=== PATIENT | male | born 1960 | race Caucasian/White ===

== ENCOUNTER 2020-09-24 13:15 | Emergency (ER) | payer SELFPAY ==
[~2020-09-24 13:15] MED LIST: LORazepam 2 MG/ML SDV ONE
[2020-09-24] MEDS ORDERED: levETIRAcetam 500 MG in Sodium Chloride 0.9% 100 ML IV ONE ×3 (13:43→16:18)
[2020-09-24] MEDS ORDERED: Sodium Chloride 0.9% 1,000 ML IV SCH (13:45)
[2020-09-24] MEDS ORDERED: Diltiazem 100 MG in Sodium Chloride 0.9% 100 ML IV SCH (13:45)
--- NOTE | 2020-09-24 13:48 | EDM.PDOC ---
ED HPI GENERAL MEDICAL PROBLEM - General Chief Complaint: Trauma Stated Complaint: [facility] Time Seen by Provider: 09/24/20 13:19 Source of Information: Reports: Patient History Limitations: Reports: No Limitations - History of Present Illness INITIAL COMMENTS - FREE TEXT/NARRATIVE: 59-year-old male presents to the ED although I question his age., Code was called upon arrival at 13:14 hrs. he appears normal than stated age. The history is that passersby found a male who apparently fell getting out of his vehicle or suffered a syncopal episode. It is unclear if his actual fall was witnessed versus finding him on the ground. Is unclear if they found him unresponsive. Paramedics were called. Patient moans and groans and he could say a few words to them indicating that his left leg hurt. They could not get in a modicum or if he is on any medications. Patient experienced a grand mal convulsion lasting a little over a minute while in the ambulance in route to the hospital. He has immobilized with a c-collar and on a spine board upon arrival. He can offer no verbal response. 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 The left eye shows a pupil dilated to 6 mm but does respond to light. He has an abrasion above his left eye in a curvilinear fashion but appears to be fairly superficial. No other palpable skull deficits or defects identified. C-collar was left in place. He had good air entry to both lung silverio no palpable deformities or subcutaneous emphysema clavicles intact shoulders intact elbows intact wrists and forearms intact. Abdomen showed a few bowel sounds and soft palpation without any organomegaly or masses. Chest revealed a rapid heart rate in the 170s appeared to be a regular rhythm. Monitor shows SVT like rhythm between 170 and 180 bpm. This was recognized by the paramedics in route to the hospital as well they were about to give him Identicard when he seemed to slow down. He did receive Adenocard 6, 12, 12 in the ED without any slowing of his rate. School he was given Cardizem 10 mg IV bolus and started on drip at 10 mg/h. Subsequently he has required 2 further 10 mg IV boluses to achieve a heart rate in the 140s. Onset: Today, Sudden, Unknown/Unsure (Early his fall was unwitnessed but it is felt that he was found shortly after injury outside of a local apartment building.) Onset Date: 09/24/20 Duration: Other (Unknown for sure.) Location: Reports: Head (Appears to have hit his head but there is no major deformities or hematomas other than above his left eye) Quality: Reports: Other (Patient is nonverbal unable to quantify.) Severity: Severe Improves with: Reports: None Worsens with: Reports: None Context: Reports: Trauma (To be versus fall while getting out of a vehicle. Appears to of landed hard on a concrete surface with suspect closed head injury.). Denies: Activity, Exercise, Lifting, Sick Contact, Other Associated Symptoms: Reports: Seizure, Other (Grand mal seizure lasting a little over a minute in route to the hospital per paramedics. Identified to have a regular narrow complex tachycardia at 170 to 180/min on the school lunch monitor in the ambulance. 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 [Unable to Verify Home Med List] 09/24/20 [History] Review of Systems - Review of Systems Review Of Systems: Unable To Obtain Reason Not Obtained: Patient arrives essentially unresponsive. Patient arrives after ED EXAM, GENERAL - Physical Exam Exam: See Below Exam Limited By: Altered Mental Status (I could smell no alcohol on his breath.) General Appearance: Obtunded (Perhaps postictal.), Moderate Distress, Other (Monitor shows narrow complex tachycardia of 170 to 180/min. Appears to be SVT. No response to Adenocard- 6,12 and 12 mg IV. ) Ears: Normal TMs, Other (No blood behind the tympanic membranes.) Throat/Mouth: Normal Inspection, Normal Lips, Normal Oropharynx, Other (Tongue appears mildly dry. There is no evidence of tongue bite or any blood in the oropharynx.). No: Normal Teeth Head: Other (He has a curvilinear superficial laceration above his left eyebrow. There is slight swelling in this area. No palpable deformities on the posterior scalp.) Neck: Other (Neck could not be examined as he arrives in a c-collar and will be left on until neck is cleared by CT exam. Trachea is midline.) Respiratory/Chest: No Respiratory Distress, Lungs Clear, Normal Breath Sounds, No Accessory Muscle Use, Other (Palpable deformities or subcutaneous emphysema identified on chest wall exam.) Cardiovascular: No Edema, No Murmur, No Rub, Tachycardia (Monitor reveals a regular tachycardia between 170 and 180/min compatible with SVT.). No: Normal Peripheral Pulses Peripheral Pulses: 2+: Posterior Tibial (L), Posterior Tibial (R), Dorsalis Pedis (L), Dorsalis Pedis (R), 3+: Carotid (L), Carotid (R) GI/Abdominal: Normal Bowel Sounds, Soft, Non-Tender, No Organomegaly, No Mass, Pelvis Stable, Other (Scaphoid abdomen benign normal aorta without bruit.). No: Guarding, Rigid ( No surgical scars), Rebound, Tender (Male) Exam: No Hernia, Other Rectal (Males) Exam: Normal Exam (No blood at the urethral meatus or at the anus.). No: Normal Rectal Tone (Paralyzed at the time of rectal exam.) Back Exam: Normal Inspection, Full Range of Motion, Other (Logrolling there is no evidence of abrasions contusions or injuries to the thoracic or lumbar spine.) Extremities: Normal Inspection, Normal Range of Motion, Non-Tender, No Pedal Edema ( Spinous processes appear to be intact.), Other (He had full range of motion of both knees both hips and ankles.) Neurological: Confused (Suspect postictal.), Unresponsive (He moans and groans but offers no verbal response that is understandable.) Skin Exam: Warm, Dry, Intact, Normal Color, No Rash #1 Interpretation EKG Date: 09/24/20 Time: 14:33 Rhythm: Other Rate (Beats/Min): 151 [place]: LAD-Left [place] Deviation (-73 degrees) P-Wave: Present (I suspect that the P wave may be on top of the T wave but this is not easily discernible at this rate.) QRS: Other (There is a Q wave in lead III and aVF 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 There is decreased voltage in the limb leads.) ST-T: Other (Diffuse early repolarization pattern with questionable ST segment depression in leads V4 to V6 suggesting ischemia. Initial poor R wave progression consider old anteroseptal myocardial infarction) QT: Prolonged (QT interval is markedly prolonged at) EKG Interpretation Comments: Abnormal ECG #2 Interpretation EKG Date: 09/24/20 Time: 15:59 Rhythm: Other Rate (Beats/Min): 128 [place]: LAD-Left [place] Deviation (Left axis deviation -73 degrees) P-Wave: Enlarged (Consider left atrial hypertrophy) QRS: Other (Q waves present leads III and aVF consider old inferior wall myocardial infarction. Initial poor R wave progression V1 -V3 consider old anteroseptal myocardial infarction.) ST-T: Other (Diffuse early repolarization pattern versus ST segment depression in leads V4 to V6.) QT: Prolonged EKG Interpretation Comments: Abnormal ECG Course - Vital Signs Last Recorded V/S: Last Vital Signs Temp -9.9 C L 09/24/20 14:22 Pulse 170 H 09/24/20 14:19 Resp 30 H 09/24/20 14:19 BP 110/79 09/24/20 14:19 Pulse Ox 91 L 09/24/20 17:29 - Orders/Labs/Meds Orders: Active Orders 24 hr Category Date Time Status Insert Beasley Catheter [Insert Urinary Catheter] [OM.PC] Care 09/24/20 14:00 Ordered Q24H CULTURE BLOOD [BC] Stat Lab 09/24/20 14:10 Received CULTURE BLOOD [BC] Stat Lab 09/24/20 14:19 Received CULTURE CSF + SMEAR [RM] Urgent Lab 09/24/20 15:11 Results ME PANEL Urgent Lab 09/24/20 15:11 Received Blood Culture x2 Reflex Set [OM.PC] Stat Oth 09/24/20 13:47 Ordered Labs: Laboratory Tests 09/24/20 09/24/20 09/24/20 Range/Units 13:24 13:24 13:24 WBC 6.96 (4.23-9.07) K/mm3 RBC 5.37 (4.63-6.08) M/mm3 Hgb 17.4 (13.7-17.5) gm/dl Hct 54.3 H (40.1-51.0) % MCV 101.1 H (79.0-92.2) fl MCH 32.4 H (25.7-32.2) pg MCHC 32.0 L (32.2-35.5) g/dl RDW Std Deviation 52.0 H (35.1-43.9) fL Plt Count 90 L (163-337) K/mm3 MPV 10.0 (9.4-12.3) fl Neut % (Auto) 57.9 (34.0-67.9) % Lymph % (Auto) 25.6 (21.8-53.1) % [place] % (Auto) 15.7 H (5.3-12.2) % Eos % (Auto) 0.1 L (0.8-7.0) Baso % (Auto) 0.3 (0.1-1.2) % Neut # (Auto) 4.03 (1.78-5.38) K/mm3 Lymph # (Auto) 1.78 (1.32-3.57) K/mm3 [place] # (Auto) 1.09 H (0.30-0.82) K/mm3 Eos # (Auto) 0.01 L (0.04-0.54) K/mm3 Baso # (Auto) 0.02 (0.01-0.08) K/mm3 Manual Slide Review Abnormal smear PT 11.3 (9.7-12.0) SECONDS INR 1.06 APTT 30.5 (21.7-31.4) SECONDS Puncture Site ABG pH (7.35-7.45) ABG pCO2 (35.0-45.0) mmHg ABG pO2 (80.0-100.0) mmHg ABG HCO3 (22.0-26.0) meq/L ABG O2 Saturation (96.0-97.0) % ABG Base Excess (-2-2.0) A-a Gradient mmHg O2 Delivery Device FiO2 (21.00-100.00) % Tidal Volume cc PEEP cmH20 Sodium 140 (136-145) mEq/L Potassium 4.1 (3.5-5.1) mEq/L Chloride 93 L (98-107) mEq/L Carbon Dioxide 10 L (21-32) mEq/L Anion Gap 41.1 H (5-15) BUN 30 H (7-18) mg/dL Creatinine 2.1 H (0.7-1.3) mg/dL Est Cr Clr Drug Dosing TNP Estimated GFR (MDRD) 33 (>60) mL/min BUN/Creatinine Ratio 14.3 (14-18) Glucose 226 H (74-106) mg/dL POC Glucose (70-99) mg/dL Lactic Acid (0.4-2.0) mmol/L Calcium 10.4 H (8.5-10.1) mg/dL Magnesium 2.5 H (1.8-2.4) mg/dl Total Bilirubin 1.7 H (0.2-1.0) mg/dL AST 361 H (15-37) U/L ALT 350 H (16-63) U/L Alkaline Phosphatase 90 (46-116) U/L CK-MB (CK-2) 1.0 (0-3.6) ng/ml Troponin I < 0.017 (0.00-0.056) ng/mL C-Reactive Protein (<1.0) mg/dL NT-Pro-B Natriuret Pep (0-125) pg/mL Total Protein 9.4 H (6.4-8.2) g/dl Albumin 5.0 (3.4-5.0) g/dl Globulin 4.4 gm/dL Albumin/Globulin Ratio 1.1 (1-2) Urine Color (Yellow) Urine Appearance (Clear) Urine pH (5.0-8.0) Ur Specific [place] (1.005-1.030) Urine Protein (Negative) Urine Glucose (UA) (Negative) Urine Ketones (Negative) Urine Occult Blood (Negative) Urine Nitrite (Negative) Urine Bilirubin (Negative) Urine Urobilinogen (0.2-1.0) Ur Leukocyte Esterase (Negative) Urine RBC (0-5) /hpf Urine WBC (0-5) /hpf Ur Epithelial Cells (0-5) /hpf Amorphous Sediment (NOT SEEN) /hpf Urine Bacteria (FEW) /hpf Urine Mucus (FEW) /hpf CSF Tube Number CSF Volume ml CSF Appearance (CLEAR) CSF Color CSF Supernatant Appear CSF WBC (0.000-0.008) 10*3/uL CSF RBC (0.000-0.003) 10*6/uL CSF Seg Neutrophils (0-5) CSF Lymphocytes (0-8) CSF Monocytes (0-0) CSF Diff Comment CSF Glucose (40-70) mg/dl CSF Total Protein (15-45) mg/dl Urine Opiates Screen (VITMMM=593) Ur Buprenorphine Scrn (CUTOFF=10) Ur Oxycodone Screen (EPT4BX=203) Urine Methadone Screen (UJY6ZT=644) Ur Propoxyphene Screen (TKMYZQ=958) Ur Barbiturates Screen (RPMWRW=290) Ur Tricyclics Screen (JAKIYB=416) Ur Phencyclidine Scrn (CUTOFF=25) Ur Amphetamine Screen (UQZVPI=314) U Methamphetamines Scrn (RVOPGN=945) U Benzodiazepines Scrn (WHMVWW=655) U Cocaine Metab Screen (UIVKRE=113) U Marijuana (THC) Screen (CUTOFF=50) Ethyl Alcohol 0.00 (0.00) gm% SARS-CoV-2 RNA (KASSIDY) (NEGATIVE) 09/24/20 09/24/20 09/24/20 Range/Units 13:24 13:24 13:43 WBC (4.23-9.07) K/mm3 RBC (4.63-6.08) M/mm3 Hgb (13.7-17.5) gm/dl Hct (40.1-51.0) % MCV (79.0-92.2) fl MCH (25.7-32.2) pg MCHC (32.2-35.5) g/dl RDW Std Deviation (35.1-43.9) fL Plt Count (163-337) K/mm3 MPV (9.4-12.3) fl Neut % (Auto) (34.0-67.9) % Lymph % (Auto) (21.8-53.1) % [place] % (Auto) (5.3-12.2) % Eos % (Auto) (0.8-7.0) Baso % (Auto) (0.1-1.2) % Neut # (Auto) (1.78-5.38) K/mm3 Lymph # (Auto) (1.32-3.57) K/mm3 [place] # (Auto) (0.30-0.82) K/mm3 Eos # (Auto) (0.04-0.54) K/mm3 Baso # (Auto) (0.01-0.08) K/mm3 Manual Slide Review PT (9.7-12.0) SECONDS INR APTT (21.7-31.4) SECONDS Puncture Site ABG pH (7.35-7.45) ABG pCO2 (35.0-45.0) mmHg ABG pO2 (80.0-100.0) mmHg ABG HCO3 (22.0-26.0) meq/L ABG O2 Saturation (96.0-97.0) % ABG Base Excess (-2-2.0) A-a Gradient mmHg O2 Delivery Device FiO2 (21.00-100.00) % Tidal Volume cc PEEP cmH20 Sodium (136-145) mEq/L Potassium (3.5-5.1) mEq/L Chloride (98-107) mEq/L Carbon Dioxide (21-32) mEq/L Anion Gap (5-15) BUN (7-18) mg/dL Creatinine (0.7-1.3) mg/dL Est Cr Clr Drug Dosing Estimated GFR (MDRD) (>60) mL/min BUN/Creatinine Ratio (14-18) Glucose (74-106) mg/dL POC Glucose (70-99) mg/dL Lactic Acid (0.4-2.0) mmol/L Calcium (8.5-10.1) mg/dL Magnesium (1.8-2.4) mg/dl Total Bilirubin (0.2-1.0) mg/dL AST (15-37) U/L ALT (16-63) U/L Alkaline Phosphatase (46-116) U/L CK-MB (CK-2) (0-3.6) ng/ml Troponin I (0.00-0.056) ng/mL C-Reactive Protein 0.6 (<1.0) mg/dL NT-Pro-B Natriuret Pep 1338 H (0-125) pg/mL Total Protein (6.4-8.2) g/dl Albumin (3.4-5.0) g/dl Globulin gm/dL Albumin/Globulin Ratio (1-2) Urine Color [place] H (Yellow) Urine Appearance Cloudy H (Clear) Urine pH 6.5 (5.0-8.0) Ur Specific [place] > or = 1.030 (1.005-1.030) Urine Protein 3+ H (Negative) Urine Glucose (UA) Trace H (Negative) Urine Ketones 4+ H (Negative) Urine Occult Blood 3+ H (Negative) Urine Nitrite Negative (Negative) Urine Bilirubin 2+ H (Negative) Urine Urobilinogen 1.0 (0.2-1.0) Ur Leukocyte Esterase Negative (Negative) Urine RBC 0-5 (0-5) /hpf Urine WBC 0-5 (0-5) /hpf Ur Epithelial Cells 0-5 (0-5) /hpf Amorphous Sediment Moderate H (NOT SEEN) /hpf Urine Bacteria Few (FEW) /hpf Urine Mucus Moderate H (FEW) /hpf CSF Tube Number CSF Volume ml CSF Appearance (CLEAR) CSF Color CSF Supernatant Appear CSF WBC (0.000-0.008) 10*3/uL CSF RBC (0.000-0.003) 10*6/uL CSF Seg Neutrophils (0-5) CSF Lymphocytes (0-8) CSF Monocytes (0-0) CSF Diff Comment CSF Glucose (40-70) mg/dl CSF Total Protein (15-45) mg/dl Urine Opiates Screen (IIPRFF=329) Ur Buprenorphine Scrn (CUTOFF=10) Ur Oxycodone Screen (NZF8XO=335) Urine Methadone Screen (ZFM7EH=069) Ur Propoxyphene Screen (ZHMNAU=906) Ur Barbiturates Screen (HVYOSX=051) Ur Tricyclics Screen (VFIGDU=618) Ur Phencyclidine Scrn (CUTOFF=25) Ur Amphetamine Screen (KPSLXF=735) U Methamphetamines Scrn (XZSQXD=564) U Benzodiazepines Scrn (BOPGMQ=942) U Cocaine Metab Screen (HCWBAP=415) U Marijuana (THC) Screen (CUTOFF=50) Ethyl Alcohol (0.00) gm% SARS-CoV-2 RNA (KASSIDY) (NEGATIVE) 09/24/20 09/24/20 09/24/20 Range/Units 13:43 13:46 14:06 WBC (4.23-9.07) K/mm3 RBC (4.63-6.08) M/mm3 Hgb (13.7-17.5) gm/dl Hct (40.1-51.0) % MCV (79.0-92.2) fl MCH (25.7-32.2) pg MCHC (32.2-35.5) g/dl RDW Std Deviation (35.1-43.9) fL Plt Count (163-337) K/mm3 MPV (9.4-12.3) fl Neut % (Auto) (34.0-67.9) % Lymph % (Auto) (21.8-53.1) % [place] % (Auto) (5.3-12.2) % Eos % (Auto) (0.8-7.0) Baso % (Auto) (0.1-1.2) % Neut # (Auto) (1.78-5.38) K/mm3 Lymph # (Auto) (1.32-3.57) K/mm3 [place] # (Auto) (0.30-0.82) K/mm3 Eos # (Auto) (0.04-0.54) K/mm3 Baso # (Auto) (0.01-0.08) K/mm3 Manual Slide Review PT (9.7-12.0) SECONDS INR APTT (21.7-31.4) SECONDS Puncture Site ABG pH (7.35-7.45) ABG pCO2 (35.0-45.0) mmHg ABG pO2 (80.0-100.0) mmHg ABG HCO3 (22.0-26.0) meq/L ABG O2 Saturation (96.0-97.0) % ABG Base Excess (-2-2.0) A-a Gradient mmHg O2 Delivery Device FiO2 (21.00-100.00) % Tidal Volume cc PEEP cmH20 Sodium (136-145) mEq/L Potassium (3.5-5.1) mEq/L Chloride (98-107) mEq/L Carbon Dioxide (21-32) mEq/L Anion Gap (5-15) BUN (7-18) mg/dL Creatinine (0.7-1.3) mg/dL Est Cr Clr Drug Dosing Estimated GFR (MDRD) (>60) mL/min BUN/Creatinine Ratio (14-18) Glucose (74-106) mg/dL POC Glucose (70-99) mg/dL Lactic Acid 16.2 H* (0.4-2.0) mmol/L Calcium (8.5-10.1) mg/dL Magnesium (1.8-2.4) mg/dl Total Bilirubin (0.2-1.0) mg/dL AST (15-37) U/L ALT (16-63) U/L Alkaline Phosphatase (46-116) U/L CK-MB (CK-2) (0-3.6) ng/ml Troponin I (0.00-0.056) ng/mL C-Reactive Protein (<1.0) mg/dL NT-Pro-B Natriuret Pep (0-125) pg/mL Total Protein (6.4-8.2) g/dl Albumin (3.4-5.0) g/dl Globulin gm/dL Albumin/Globulin Ratio (1-2) Urine Color (Yellow) Urine Appearance (Clear) Urine pH (5.0-8.0) Ur Specific [place] (1.005-1.030) Urine Protein (Negative) Urine Glucose (UA) (Negative) Urine Ketones (Negative) Urine Occult Blood (Negative) Urine Nitrite (Negative) Urine Bilirubin (Negative) Urine Urobilinogen (0.2-1.0) Ur Leukocyte Esterase (Negative) Urine RBC (0-5) /hpf Urine WBC (0-5) /hpf Ur Epithelial Cells (0-5) /hpf Amorphous Sediment (NOT SEEN) /hpf Urine Bacteria (FEW) /hpf Urine Mucus (FEW) /hpf CSF Tube Number CSF Volume ml CSF Appearance (CLEAR) CSF Color CSF Supernatant Appear CSF WBC (0.000-0.008) 10*3/uL CSF RBC (0.000-0.003) 10*6/uL CSF Seg Neutrophils (0-5) CSF Lymphocytes (0-8) CSF Monocytes (0-0) CSF Diff Comment CSF Glucose (40-70) mg/dl CSF Total Protein (15-45) mg/dl Urine Opiates Screen Negative (IJJUIO=130) Ur Buprenorphine Scrn Negative (CUTOFF=10) Ur Oxycodone Screen Negative (EUV5FA=324) Urine Methadone Screen Negative (TQO1RJ=001) Ur Propoxyphene Screen Negative (WVYUHT=238) Ur Barbiturates Screen Negative (XQUGHJ=071) Ur Tricyclics Screen Negative (INLRLG=686) Ur Phencyclidine Scrn Negative (CUTOFF=25) Ur Amphetamine Screen Negative (AJHCOH=614) U Methamphetamines Scrn Negative (LLXPIY=055) U Benzodiazepines Scrn Negative (VYTTLS=158) U Cocaine Metab Screen Negative (LGWEPZ=001) U Marijuana (THC) Screen Negative (CUTOFF=50) Ethyl Alcohol (0.00) gm% SARS-CoV-2 RNA (KASSIDY) Negative (NEGATIVE) 09/24/20 09/24/2021 Range/Units 14:10 15:11 15:11 WBC (4.23-9.07) K/mm3 RBC (4.63-6.08) M/mm3 Hgb (13.7-17.5) gm/dl Hct (40.1-51.0) % MCV (79.0-92.2) fl MCH (25.7-32.2) pg MCHC (32.2-35.5) g/dl RDW Std Deviation (35.1-43.9) fL Plt Count (163-337) K/mm3 MPV (9.4-12.3) fl Neut % (Auto) (34.0-67.9) % Lymph % (Auto) (21.8-53.1) % [place] % (Auto) (5.3-12.2) % Eos % (Auto) (0.8-7.0) Baso % (Auto) (0.1-1.2) % Neut # (Auto) (1.78-5.38) K/mm3 Lymph # (Auto) (1.32-3.57) K/mm3 [place] # (Auto) (0.30-0.82) K/mm3 Eos # (Auto) (0.04-0.54) K/mm3 Baso # (Auto) (0.01-0.08) K/mm3 Manual Slide Review PT (9.7-12.0) SECONDS INR APTT (21.7-31.4) SECONDS Puncture Site Lt radial ABG pH 7.26 L (7.35-7.45) ABG pCO2 44.4 (35.0-45.0) mmHg ABG pO2 171.0 H* (80.0-100.0) mmHg ABG HCO3 19.3 L (22.0-26.0) meq/L ABG O2 Saturation 98.8 H (96.0-97.0) % ABG Base Excess -7.5 L (-2-2.0) A-a Gradient 202 mmHg O2 Delivery Device Ventilator FiO2 60.00 (21.00-100.00) % Tidal Volume 450.0 cc PEEP 5.0 cmH20 Sodium (136-145) mEq/L Potassium (3.5-5.1) mEq/L Chloride (98-107) mEq/L Carbon Dioxide (21-32) mEq/L Anion Gap (5-15) BUN (7-18) mg/dL Creatinine (0.7-1.3) mg/dL Est Cr Clr Drug Dosing Estimated GFR (MDRD) (>60) mL/min BUN/Creatinine Ratio (14-18) Glucose (74-106) mg/dL POC Glucose (70-99) mg/dL Lactic Acid (0.4-2.0) mmol/L Calcium (8.5-10.1) mg/dL Magnesium (1.8-2.4) mg/dl Total Bilirubin (0.2-1.0) mg/dL AST (15-37) U/L ALT (16-63) U/L Alkaline Phosphatase (46-116) U/L CK-MB (CK-2) (0-3.6) ng/ml Troponin I (0.00-0.056) ng/mL C-Reactive Protein (<1.0) mg/dL NT-Pro-B Natriuret Pep (0-125) pg/mL Total Protein (6.4-8.2) g/dl Albumin (3.4-5.0) g/dl Globulin gm/dL Albumin/Globulin Ratio (1-2) Urine Color (Yellow) Urine Appearance (Clear) Urine pH (5.0-8.0) Ur Specific [place] (1.005-1.030) Urine Protein (Negative) Urine Glucose (UA) (Negative) Urine Ketones (Negative) Urine Occult Blood (Negative) Urine Nitrite (Negative) Urine Bilirubin (Negative) Urine Urobilinogen (0.2-1.0) Ur Leukocyte Esterase (Negative) Urine RBC (0-5) /hpf Urine WBC (0-5) /hpf Ur Epithelial Cells (0-5) /hpf Amorphous Sediment (NOT SEEN) /hpf Urine Bacteria (FEW) /hpf Urine Mucus (FEW) /hpf CSF Tube Number 3 CSF Volume 4 ml CSF Appearance Hazy (CLEAR) CSF Color [place] CSF Supernatant Appear No xanthochromia CSF WBC 0.004 (0.000-0.008) 10*3/uL CSF RBC 0.003 (0.000-0.003) 10*6/uL CSF Seg Neutrophils 24.0 H (0-5) CSF Lymphocytes 2.0 (0-8) CSF Monocytes 4.0 H (0-0) CSF Diff Comment CSF Glucose 100.0 H (40-70) mg/dl CSF Total Protein 76.9 H (15-45) mg/dl Urine Opiates Screen (NQUTNZ=793) Ur Buprenorphine Scrn (CUTOFF=10) Ur Oxycodone Screen (QQA7QS=184) Urine Methadone Screen (TGN9JR=836) Ur Propoxyphene Screen (DVOCCO=534) Ur Barbiturates Screen (AMCGUQ=944) Ur Tricyclics Screen (ADNVHY=184) Ur Phencyclidine Scrn (CUTOFF=25) Ur Amphetamine Screen (YSTCOV=443) U Methamphetamines Scrn (DQEXIT=617) U Benzodiazepines Scrn (GVGBVC=864) U Cocaine Metab Screen (NOZXLS=763) U Marijuana (THC) Screen (CUTOFF=50) Ethyl Alcohol (0.00) gm% SARS-CoV-2 RNA (KASSIDY) (NEGATIVE) 09/24/20 09/24/20 09/24/20 Range/Units 15:14 17:00 18:58 WBC (4.23-9.07) K/mm3 RBC (4.63-6.08) M/mm3 Hgb (13.7-17.5) gm/dl Hct (40.1-51.0) % MCV (79.0-92.2) fl MCH (25.7-32.2) pg MCHC (32.2-35.5) g/dl RDW Std Deviation (35.1-43.9) fL Plt Count (163-337) K/mm3 MPV (9.4-12.3) fl Neut % (Auto) (34.0-67.9) % Lymph % (Auto) (21.8-53.1) % [place] % (Auto) (5.3-12.2) % Eos % (Auto) (0.8-7.0) Baso % (Auto) (0.1-1.2) % Neut # (Auto) (1.78-5.38) K/mm3 Lymph # (Auto) (1.32-3.57) K/mm3 [place] # (Auto) (0.30-0.82) K/mm3 Eos # (Auto) (0.04-0.54) K/mm3 Baso # (Auto) (0.01-0.08) K/mm3 Manual Slide Review PT (9.7-12.0) SECONDS INR APTT (21.7-31.4) SECONDS Puncture Site Lt radial ABG pH 7.35 (7.35-7.45) ABG pCO2 44.7 (35.0-45.0) mmHg ABG pO2 101.0 H (80.0-100.0) mmHg ABG HCO3 24.0 (22.0-26.0) meq/L ABG O2 Saturation 96.7 (96.0-97.0) % ABG Base Excess -1.4 (-2-2.0) A-a Gradient 129 mmHg O2 Delivery Device Ventilator FiO2 40.00 (21.00-100.00) % Tidal Volume 450.0 cc PEEP 5.0 cmH20 Sodium (136-145) mEq/L Potassium (3.5-5.1) mEq/L Chloride (98-107) mEq/L Carbon Dioxide (21-32) mEq/L Anion Gap (5-15) BUN (7-18) mg/dL Creatinine (0.7-1.3) mg/dL Est Cr Clr Drug Dosing Estimated GFR (MDRD) (>60) mL/min BUN/Creatinine Ratio (14-18) Glucose (74-106) mg/dL POC Glucose 124 H (70-99) mg/dL Lactic Acid 2.3 H* (0.4-2.0) mmol/L Calcium (8.5-10.1) mg/dL Magnesium (1.8-2.4) mg/dl Total Bilirubin (0.2-1.0) mg/dL AST (15-37) U/L ALT (16-63) U/L Alkaline Phosphatase (46-116) U/L CK-MB (CK-2) (0-3.6) ng/ml Troponin I (0.00-0.056) ng/mL C-Reactive Protein (<1.0) mg/dL NT-Pro-B Natriuret Pep (0-125) pg/mL Total Protein (6.4-8.2) g/dl Albumin (3.4-5.0) g/dl Globulin gm/dL Albumin/Globulin Ratio (1-2) Urine Color (Yellow) Urine Appearance (Clear) Urine pH (5.0-8.0) Ur Specific [place] (1.005-1.030) Urine Protein (Negative) Urine Glucose (UA) (Negative) Urine Ketones (Negative) Urine Occult Blood (Negative) Urine Nitrite (Negative) Urine Bilirubin (Negative) Urine Urobilinogen (0.2-1.0) Ur Leukocyte Esterase (Negative) Urine RBC (0-5) /hpf Urine WBC (0-5) /hpf Ur Epithelial Cells (0-5) /hpf Amorphous Sediment (NOT SEEN) /hpf Urine Bacteria (FEW) /hpf Urine Mucus (FEW) /hpf CSF Tube Number CSF Volume ml CSF Appearance (CLEAR) CSF Color CSF Supernatant Appear CSF WBC (0.000-0.008) 10*3/uL CSF RBC (0.000-0.003) 10*6/uL CSF Seg Neutrophils (0-5) CSF Lymphocytes (0-8) CSF Monocytes (0-0) CSF Diff Comment CSF Glucose (40-70) mg/dl CSF Total Protein (15-45) mg/dl Urine Opiates Screen (QNUWBY=622) Ur Buprenorphine Scrn (CUTOFF=10) Ur Oxycodone Screen (RPJ0GI=773) Urine Methadone Screen (SIX7ON=201) Ur Propoxyphene Screen (UJVWIG=318) Ur Barbiturates Screen (UNGHOH=610) Ur Tricyclics Screen (RCIEUV=893) Ur Phencyclidine Scrn (CUTOFF=25) Ur Amphetamine Screen (OCQWTU=599) U Methamphetamines Scrn (AIUGQG=750) U Benzodiazepines Scrn (BABEMD=175) U Cocaine Metab Screen (FMPLUX=470) U Marijuana (THC) Screen (CUTOFF=50) Ethyl Alcohol (0.00) gm% SARS-CoV-2 RNA (KASSIDY) (NEGATIVE) Meds: Medications Discontinued Medications Generic Name Dose Route Start Last Admin Trade Name Freq PRN Reason Stop Dose Admin Acetaminophen 650 mg 09/24/20 13:52 09/24/20 14:22 Acetaminophen 650 Mg Supp RECTAL 09/24/20 13:53 650 mg NOW ONE Administration Albuterol 2.5 mg 09/24/20 17:28 09/24/20 17:34 Albuterol 0.083% 2.5 Mg/3 Ml Neb Soln NEB 09/24/20 17:29 2.5 mg ONETIME ONE Administration Ceftriaxone Sodium Confirm 09/24/20 15:01 09/24/20 16:24 Ceftriaxone 2 Gm Advvial Administered 09/24/20 15:02 Not Given Dose 2 gm IV .STK-MED ONE Sodium Chloride 1,000 mls @ 125 mls/hr 09/24/20 13:45 09/24/20 13:40 Normal Saline IV 999 mls/hr ASDIRECTED ARVIN Administration Levetiracetam 500 mg/ Sodium 105 mls @ 400 mls/hr 09/24/20 13:43 09/24/20 14:00 Chloride IV 09/24/20 13:57 400 mls/hr ONETIME ONE Administration Amiodarone HCl/Dextrose Confirm 09/24/20 14:27 09/24/20 16:47 Nexterone In Dextrose 150 Mg/100 Ml Administered 09/24/20 14:28 Not Given Dose 100 mls @ as directed IV .STK-MED ONE Amiodarone HCl/Dextrose Confirm 09/24/20 14:27 09/24/20 17:01 Nexterone In Dextrose 360 Mg/200 Ml Administered 09/24/20 14:28 Not Given Dose 360 mg in 200 mls @ as directed .ROUTE .STK-MED ONE Sodium Chloride Confirm 09/24/20 15:01 09/24/20 16:24 Normal Saline Administered 09/24/20 15:02 Not Given Dose 100 mls @ as directed .ROUTE .STK-MED ONE Ceftriaxone Sodium 2 gm/ 100 mls @ 200 mls/hr 09/24/20 15:15 09/24/20 15:12 Sodium Chloride IV 200 mls/hr Q24H ARVIN Administration Levetiracetam 500 mg/ Sodium 105 mls @ 400 mls/hr 09/24/20 14:17 09/24/20 14:17 Chloride IV 09/24/20 14:32 400 mls/hr ONETIME ONE Administration Levetiracetam 500 mg/ Sodium 105 mls @ 400 mls/hr 09/24/20 16:18 09/24/20 16:40 Chloride IV 09/24/20 16:32 400 mls/hr ONETIME ONE Administration Midazolam HCl 100 mg/ Sodium 100 mls @ 20 mls/hr 09/24/20 16:30 09/24/20 16:36 Chloride IV 20 mg/hr TITRATE ARVIN 20 mls/hr Administration Protocol 20 MG/HR Sodium Chloride Confirm 09/24/20 16:29 09/24/20 17:07 Normal Saline Administered 09/24/20 16:30 Not Given Dose 1,000 mls @ as directed .ROUTE .STK-MED ONE Amiodarone HCl/Dextrose 100 mls @ 600 mls/hr 09/24/20 14:30 09/24/20 14:31 Nexterone In Dextrose 150 Mg/100 Ml IV 09/24/20 14:39 600 mls/hr .BOLUS ONE Administration Protocol Amiodarone HCl/Dextrose 360 mg in 200 mls @ 33.333 mls/hr 09/24/20 14:45 09/24/20 14:45 Nexterone In Dextrose 360 Mg/200 Ml IV 33.333 mls/hr ASDIRECTED ARVIN Administration Protocol Sodium Chloride 1,000 mls @ 999 mls/hr 09/24/20 15:00 09/24/20 15:10 Normal Saline IV 09/24/20 16:00 999 mls/hr ONETIME ONE Administration Sodium Chloride 1,000 mls @ 999 mls/hr 09/24/20 16:30 09/24/20 16:30 Normal Saline IV 09/24/20 17:30 999 mls/hr ONETIME ONE Administration Propofol Confirm 09/24/20 19:54 09/24/20 20:57 Diprivan 100 Ml Administered 09/24/20 19:55 Not Given Dose 100 mls @ as directed .ROUTE .STK-MED ONE Dextrose/Sodium Chloride 1,000 mls @ 250 mls/hr 09/24/20 20:45 09/24/20 21:54 Dextrose 5%-Normal Saline IV 250 mls/hr ASDIRECTED ARVIN Administration Midazolam HCl 100 mg/ Sodium 100 mls @ 0 mls/hr 09/24/20 20:45 Chloride IV TITRATE ARVIN Protocol 0.02 MG/KG/HR Propofol 100 mls @ 2.1 mls/hr 09/24/20 20:45 09/24/20 21:54 Diprivan 100 Ml IV 5 mcg/kg/min TITRATE ARVIN 2.1 mls/hr Administration Protocol 5 MCG/KG/MIN Midazolam HCl 100 mg/ Sodium 100 mls @ 20 mls/hr 09/24/20 21:00 09/24/20 20:56 Chloride IV 20 mg/hr TITRATE ARVIN 20 mls/hr Administration Protocol 20 MG/HR Midazolam HCl 10 mg 09/24/20 16:19 09/24/20 16:38 Midazolam 1 Mg/Ml 5 Ml Sdv IVPUSH 09/24/20 16:20 10 mg ONETIME ONE Administration Rocuronium Babbitt 70 mg 09/24/20 14:52 09/24/20 17:17 Rocuronium 100 Mg/10 Ml Mdv IV 09/24/20 14:53 70 mg STAT STA Administration Vecuronium Babbitt Confirm 09/24/20 15:55 09/24/20 17:19 Vecuronium 10 Mg Vial Administered 09/24/20 15:56 Not Given Dose 10 mg .ROUTE .STK-MED ONE Vecuronium Babbitt 8 mg 09/24/20 16:54 09/24/20 16:59 Vecuronium 10 Mg Vial IVPUSH 09/24/20 16:55 8 mg ONETIME ONE Administration Vecuronium Babbitt Confirm 09/24/20 16:56 09/24/20 17:19 Vecuronium 10 Mg Vial Administered 09/24/20 16:57 Not Given Dose 10 mg .ROUTE .STK-MED ONE Vecuronium Babbitt 7 mg 09/24/20 15:58 09/24/20 15:58 Vecuronium 10 Mg Vial IVPUSH 09/24/20 15:59 7 mg ONETIME ONE Administration - Radiology Interpretation Free Text/Narrative:: 59-year-old male presents to the ED unresponsive. He was found outside of his truck outside of an apartment building here in town. Is unclear who called the ambulance. Apparently nobody provided any initial care. It is unclear if he tr ipped and fell versus had a syncopal event and hit his head hard on the pavement. When paramedics arrived he could monitor a few words. He complained of left leg pain. They appreciated that his left leg appeared to have external rotation of the foot and was slightly shortened. They were able to get him loaded onto a spine board and place a c-collar. In the back of the ambulance in route to the hospital he had a grand mal seizure lasting approximately 70 to 80 seconds. An IV had just been started. He did receive Ativan 1 mg IV prior to arriving in the ED. On the school lunch monitor they identified a rapid regular narrow complex tachycardia at 170 to 180 bpm. They were not able to give him any adenosine or Adenocard prior to arrival. 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 The left eye pupil had a 5 to 6 mm dilatation that did respond to light. He seemed to follow the light with that eye as well. There was no obvious tongue bite or injury to the oropharynx. Curvilinear laceration above his left eyebrow which is superficial. Mild scalp hematoma in this area. No palpable deformities in the occipital or parietal or temporal scalp identified. C-collar left in place until c-collar spine cleared by CT. Chest showed good air entry to both lung silverio. No palpable deformities of the ribs sternum clavicles or acromioclavicular joints. Similarly no injuries to the upper extremities elbows wrists or forearms. Chest did reveal a very rapid regular heartbeat at in the 170s. Abdomen is scaphoid soft with patient with no organomegaly or masses palpable. Abdominal aorta is normal. No surgical scars evident. Pelvis appears to be intact. Genitalia showed no blood at the urethral meatus. No blood in the rectum. Examination of his lower extremities were performed after the patient was paralyzed and intubated. He cannot protect his own airway. O2 sats were in the upper 80s 88% primarily with oxygen at 3 L. On lower extremity exam after he was paralyzed and intubated I could move both hips without any evidence of crepitus or injury to the femurs the knees tib-fib's or ankles. Logrolling revealed no obvious injuries to the back thoracic or lumbar spine with no abrasions contusions and normal alignment. Rectal temperature was 104.6 according to the nursing staff. He therefore was given Tylenol suppository 650 mg for fever relief. Patient did receive Identicard 6, 12, 12 mg IV with no slowing of his narrow complex tachycardia. He subsequently received cardia zyme 10 mg IV on 3 separate occasions 10 minutes apart as well as 10 mg/h drip with very minimal improvement in cardiac rate to 150. It appears again to be a regular complex rhythm without evidence of atrial fibrillation. At 1430 hrs. Cardizem was abandoned and he will be receiving amiodarone 150 mg over the next 10 minutes and then drip at 60 mg/h. CT head reveals no intracranial bleeding or mass- effect. Ventricles along with the basal cisterns and sulci over the convexities are mildly prominent for his age. Slight diminished density is noted within the periventricular white matter most consistent with small vessel ischemic demyelination changes. No other abnormal parenchymal densities are seen within the brain parenchyma. Bone window settings were reviewed which show no acute calvarial abnormalities. Visualized mastoid sinuses and paranasal sinuses show nothing acute. CT of the cervical spine reveals very minimal mucosal thickening on this exam within the sphenoid sinus. This is most likely due to retained secretions. Diffuse disc space narrowing is noted within the cervical spine and upper thoracic spine. Scattered anterior osteophytes are also noted. Posterior osteophytes are also present. Scattered degenerative apophyseal changes also present. Multiple levels of neural foraminal narrowing are seen. No acute fracture or abnormal subluxation is appreciated. There is evidence of a nasogastric tube and endotracheal tube with the inferior edge is not being well identified on this study. Scattered degenerative spurring is seen within the uncovertebral joints. Plan the patient did have further seizure activity. He had been given Keppra 500 mg intravenously upon arrival in the ED. He had also received 2 mg of Versed at the time of intubation and subsequently is required a further 2 mg of Versed. He awoke from the initial doses of paralytics I etomidate and vecuronium 7 mg IV. He was given a second dose of vecuronium 7 mg IV and propofol drip started and will be titrated upwards to help control seizures. He has had 2 further seizures since being in the ED. Plan he will have a lumbar puncture performed and then be given antibiotics unt il we can rule out meningitis. Portable chest x-ray reveals no signs of pneumonia. Cardiac silhouette appears to be normal. I cannot visualize the end of the endotracheal tube on this film either. The nasogastric tube does appear to travel below the diaphragm. - Re-Assessments/Exams Free Text/Narrative Re-Assessment/Exam: 09/24/20 15:23 White count is 6.96 with 57.9% neutrophils on the auto differential. Hemoglobin is elevated at 17.4 with hematocrit of 54.3. MCV is 101.1. Platelet count is low at 90,000. PT is 11.3 with an INR of 1.06 and a PTT of 30.5. ABGs revealed an initial pH of 7.26 with a PCO2 of 44.4 and a PO2 of 171.0 bicarb of 19.3 O2 sats 98.8% on the ventilator with an FiO2 of 60 and a tidal volume of 450 and a PEEP of 5. Oxygen was decreased to FiO2 of 40 and we increased the rate to 20/min due to elevated CO2 monitor as it went up to 56 after this blood gas was done. Sodium was 140 with a potassium of 4.1. Chloride 93 with a bicarb of 10. Anion gap was 41.1. BUN of 30 with a creatinine of 2.1. Estimated GFR is 33 a stage IIIb renal insufficiency. Glucose is elevated at 226. Lactic acid elevated markedly at 16.2 compared with multiple seizures. Possible sepsis is a consideration. Calcium is 10.4 with a magnesium of 2.5. Total bilirubin elevated at 1.7 with an AST of 361 and ALT of 350. Alkaline phosphatase is 90. CK-MB fraction is 1.0 with a troponin I of less than 0.017. C-reactive protein is 0.6 BNP elevated at 1338. Total protein markedly elevated 9.4 with an albumin fraction of 5.0 suggesting mild hemoconcentration. Urinalysis obtained by catheterization shows 3+ proteinuria trace of glucose 4+ ketones 3+ occult blood 2+ bilirubin negative leukocyte esterase and the micro reveals moderate amorphous sediment with few bacteria and moderate mucus. Urine drug screen was completely negative as was the blood alcohol is 0.00. COVID-19 screen is negative. X-ray done portably reveals hear t size to be normal. There is slight tortuosity of the thoracic aorta. Lungs show no acute parenchymal changes. Nasogastric tube courses off the inferior edge of the film into the stomach. Endotracheal tube appears to lie at the upper level of the clavicles. No acute osseous findings identified 09/24/20 15:00: Lumbar puncture was performed at the L3-L4 lumbar space with a good deal of difficulty due to encounter of bony prominences. Spinal fluid initially is moderately xanthochromic with the last 2 collection bottles being much more clear. These will be utilized for protein, glucose and white blood cell count. She will be given Rocephin 2 g intravenously at this time. He is currently in a regular tachycardia at 150/min on amiodarone infusion at 60 mg/h. This was after receiving 150 mg over the first 10 minutes. Blood pressure is maintained at 145/95. O2 sats are 95 to 98% on the vent. Ventilator set settings are FiO2 of 40%. Tidal volume of 450. PEEP of 5 and rate of 20/min. Completed a full liter of normal saline will be started on a second liter of normal saline at open. 09/24/20 15:29 we were now able to obtain further information from his ex- who lives in [place]. Her number is in his cell phone. Apparently he has been around with another lady friend in [place] drinking alcohol to excess on a daily basis for the last 6 months. She brought him back up here and advised him to seek help and essentially got rid of them. Therefore we do not know when he last had alcohol in his system. With his blood alcohol being 0 at this time there is a good chance that he is experiencing alcohol withdrawal seizures. His indicates this has happened several times in the past. Free Text/Narrative Re-Assessment/Exam: 09/24/20 17:02 and is arousing from paralytic agent wearing off. Will repeat vecuronium 8 mg IV. Blood pressure is maintained at 150/98. Heart rate has now come down to 97 and is sinus rhythm. He has completed 2 L of IV normal saline. He will receive third liter at 250 mils per hour. Early on Versed drip at 20 mg/h. No further seizure activity. He is also on propofol drip at 40 mcg/min. 09/24/20 18:52 did require some deep suctioning by respiratory therapy due to accumulation of secretions in his left upper chest. He is a cigarette smoker apparently a pack to a pack and 1/2/day. He was also given albuterol neb treatment which improved his O2 sats to 99%. He had good air entry to both lung silverio on reexamination. Blood pressure came down to 85/70 as the Versed drip was titrated up to 20 mg/kg. The propofol drip is being weaned downwards at this time to improve his blood pressure. He has had a total of 3 L of IV normal saline 09/24/20 19:01 Blood sugar check is 123. Next liter of IV fluid should be D5 LR at 150 mils per hour. Patient apparently is only put out 300 mils of urine after 3 L of IV fluid. Check with [facility] in [place] indicates that a bed in ICU is currently not available at this time. Patient be transported to that facility per ground ambulance as soon as a bed becomes available. Has been discussed with Dr. Young as it is change of shift. May need further adjustments to IV fluids and/or propofol or additional medication such as titrating up the Versed if he has any further seizure activity before ability to transfer to [facility] in [place]. Lumbar puncture results revealed a hazy pink appearance I mild xanthochromia. White cell count was 0.004. Red cell count 0.003. Segmented neutrophils were 24.0 which is mildly high. Lymphocytes 2.0. Monocytes slightly high at 4.0. Glucose of 100 and total protein of 76.9 which is mildly elevated. Gram stain is negative for any bacteria. Of note the patient did receive Rocephin 2 g intravenously prior to obtaining more history from the patient's ex- indicating that he is a chronic alcoholic and prone to seizures after stopping alcohol use. Departure - Departure Time of Disposition: 22:45 Disposition: DC/Tfer to [facility] 02 Condition: Serious Clinical Impression: Status epilepticus, generalized convulsive, Alcoholism, Lactic acidosis Alcohol withdrawal Qualifiers: Complication of substance-induced condition: with unspecified complication Qualified Code(s): F10.239 - Alcohol dependence with withdrawal, unspecified Fever Qualifiers: Fever type: due to other condition Qualified Code(s): R50.81 - Fever presenting with conditions classified elsewhere - Discharge Information *PRESCRIPTION DRUG MONITORING PROGRAM REVIEWED*: No *COPY OF PRESCRIPTION DRUG MONITORING REPORT IN PATIENT SANJAY: No Referrals: PCP,None [Primary Care Provider] - Forms: ED Department Discharge Additional Instructions: Delay in transfer to [facility] was precipitated by lack of availability of a bed in the ICU at that facility. I had spoken with Dr. Oconnor on-call physician for the ICU and Dr. Huerta department of neurology approximately 1500 hrs. today. Currently awaiting them to call back to indicate that they do have a bed availability in their ICU. Transport will be provided by ground ambulance once we have clarification of bed availability. Critical Care Note - Critical Care Note Total Time (mins): 280 Comments: Status epilepticus with 5 seizures documented. Apparent acute alcohol withdrawal with seizures in the past. Initial presentation of a SVT at 180/min which proved to be sinus. Rectal temperature of 104.6. Lactic acidosis of 16.2. Required intubation and multiple medications to manage his seizures, heart rate and blood pressure. - My Orders Last 24 Hours: My Active Orders 09/24/20 13:47 Blood Culture x2 Reflex Set [OM.PC] Stat 09/24/20 14:00 Insert Beasley Catheter [Insert Urinary Catheter] [OM.PC] Q24H 09/24/20 14:10 CULTURE BLOOD [BC] Stat 09/24/20 14:19 CULTURE BLOOD [BC] Stat 09/24/20 15:11 CULTURE CSF + SMEAR [RM] Urgent ME PANEL Urgent - Assessment/Plan Last 24 Hours: My Active Orders 09/24/20 13:47 Blood Culture x2 Reflex Set [OM.PC] Stat 09/24/20 14:00 Insert Beasley Catheter [Insert Urinary Catheter] [OM.PC] Q24H 09/24/20 14:10 CULTURE BLOOD [BC] Stat 09/24/20 14:19 CULTURE BLOOD [BC] Stat 09/24/20 15:11 CULTURE CSF + SMEAR [RM] Urgent ME PANEL Urgent
[2020-09-24] MEDS ORDERED: Acetaminophen 650 MG Supp RECTAL ONE (13:52)
[2020-09-24] MEDS ORDERED: Adenosine 6 MG/2 ML SDV ONE (14:00)
[2020-09-24] MEDS ORDERED: Etomidate 2 MG/ML 20 ML SDV IVPUSH ONE (14:00)
[2020-09-24] MEDS ORDERED: Adenosine 12 MG/4 ML SDV ONE ×2 (14:00)
[2020-09-24] MEDS ORDERED: Lidocaine 1% 10 ML MDV ONE (14:00)
[2020-09-24] MEDS ORDERED: Diltiazem 50 MG/10 ML SDV ONE ×3 (14:00)
--- NOTE | 2020-09-24 14:19 | CT ---
Head CT Technique: Multiple axial sections through the brain were obtained. Intravenous contrast was not utilized. Reconstructed coronal and sagittal images were obtained. Findings: Ventricles along with basal cisterns and sulci over the convexities are mildly prominent. Slight diminished density is noted within the periventricular white matter which most likely represents mild small vessel ischemic demyelination change. No other abnormal parenchymal densities are seen within the brain parenchyma. No midline shift or mass-effect is appreciated. Bone window settings were reviewed which show no acute calvarial abnormality. Visualized mastoid sinuses and paranasal sinuses show nothing acute. Impression: 1. Mild senescent change as noted above. 2. No acute abnormality is seen. Diagnostic code #2
--- NOTE | 2020-09-24 14:21 | CT ---
CT cervical spine Technique: Multiple axial sections through the cervical spine were obtained from above C1 inferiorly to the top of T2. Reconstructed coronal and sagittal images were obtained. Comparison: No prior cervical spine imaging is available. Findings: Very minimal mucosal thickening is seen on this exam within the sphenoid sinus. This is most likely due to retained secretions. Diffuse disc space narrowing is noted within the cervical spine and upper thoracic spine. Scattered anterior osteophytes are also noted. Posterior osteophytes are also present. Scattered degenerative apophyseal change is also present. Multiple levels of neural foraminal narrowing are seen. No acute fracture or abnormal subluxation is appreciated. There is evidence of a nasogastric tube and endotracheal tube with inferior edges not being identified on the study. Scattered degenerative spurring is seen within the uncovertebral joints. Impression: 1. Diffuse degenerative change as noted above. 2. No acute fracture or acute subluxation is seen. 2. Incompletely visualized endotracheal tube and nasogastric tube. Diagnostic code #3
[2020-09-24] MEDS ORDERED: Rocuronium 100 MG/10 ML MDV IV STA (14:52)
[2020-09-24] MEDS ORDERED: Sodium Chloride 0.9% 1,000 ML IV ONE ×2 (15:00→16:30)
[2020-09-24] MEDS ORDERED: Sodium Chloride 0.9% 100 ML ONE (15:01)
[2020-09-24] MEDS ORDERED: cefTRIAXone 2 GM AdvVial IV ONE (15:01)
--- NOTE | 2020-09-24 15:01 | CR ---
Left femur: AP and lateral views of the left femur were obtained. Comparison: No previous femur study. Minimal medial joint space narrowing is noted within the left knee. Joint space within the left hip is maintained. No acute fracture or other bony abnormality is appreciated. Impression: 1. Mild medial joint space narrowing within the left knee. 2. Nothing acute is appreciated on left femur study. Diagnostic code #2
--- NOTE | 2020-09-24 15:01 | CR ---
Chest: Portable supine view of the chest was obtained. Comparison: No previous study. Heart size is normal. Slight tortuosity of the thoracic aorta is seen. Lungs show no acute parenchymal change. Nasogastric tube courses off the inferior edge of the film into the stomach. Endotracheal tube appears to lie at the upper level of the clavicles. No acute osseous abnormality is appreciated. Impression: 1. Endotracheal tube and nasogastric tube as noted above. 2. Nothing acute is otherwise seen on supine portable chest x-ray. Diagnostic code #3
[2020-09-24] MEDS ORDERED: cefTRIAXone 2 GM in Sodium Chloride 0.9% 100 ML IV SCH (15:15)
[2020-09-24] MEDS ORDERED: Midazolam 1 MG/ML 5 ML SDV IVPUSH ONE (16:19)
[2020-09-24] MEDS ORDERED: Sodium Chloride 0.9% 1,000 ML ONE (16:29)
--- NOTE | 2020-09-24 16:35 | CR ---
Pelvis: AP view of the pelvis was obtained. Comparison: No prior pelvis exam is available. Joint space within the superior right hip is minimally narrowed. Joint space within the left hip is preserved. Sacroiliac joints are normal. Mild degenerative change is seen within the spine. No acute fracture or other abnormality is appreciated. Small metallic density is noted over the left femoral head which is likely chronic. Small calcifications are seen off the lateral left hip most likely representing superficial foreign body. Impression: 1. Slight degenerative change as noted above. Nothing acute is appreciated. Diagnostic code #2
[2020-09-24] MEDS ORDERED: Rocuronium 50 MG/5 ML Vial IV ONE (17:17)
[2020-09-24] MEDS ORDERED: Albuterol 0.083% 2.5 MG/3 ML Neb Soln NEB ONE (17:28)
[2020-09-24] MEDS ORDERED: propofoL 100 ML ONE (19:54)
[2020-09-24] MEDS ORDERED: propofoL 100 ML IV SCH (20:45)
[2020-09-24] MEDS ORDERED: Dextrose 5%-0.9% NaCl 1,000 ML IV SCH (20:45)
== END 2020-09-24 22:26 ==
LOC: JD.ED 13:15
DX: G40.401 Other generalized epilepsy and epileptic syndromes, not intractable, with status epilepticus (principal); F10.20 Alcohol dependence, uncomplicated; E87.2 Acidosis; Z20.822 Contact with and (suspected) exposure to COVID-19; Z88.0 Allergy status to penicillin; Z88.7 Allergy status to serum and vaccine
CPT/HCPCS: 31500; 36415; 36600; 43752; 70450; 71045; 72125; 72170; 73552; 80053; 80306; 80307; 81001; 82553; 82803; 82945; 82947; 83605; 83735; 83880; 84157; 84484; 85025; 85610; 85730; 86140; 87040; 87070; 87205; 87483; 87635; 89050; 93005; 94640; 96365; 96366; 96367; 96368; 96376; 99291; 99292; A9270; J0153; J0282; J0696; J1953; J2250; J2704; J3490; J7030; J7042; 93010; 99285; U0002